=== PATIENT | female | born 1960 | race Caucasian/White ===

== ENCOUNTER 2017-05-01 13:52 | Outpatient (CLI) | payer BC ==
--- NOTE | 2017-05-01 15:41 | MMO ---
BILATERAL DIGITAL SCREENING MAMMOGRAMS: Date: 05/01/17 HISTORY: 57-year-old female presents for digital screening mammogram. COMPARISON: 04/20/16, 04/15/15, 04/08/14, 03/20/13, 03/31/11. FINDINGS: This patient's mammogram was interpreted with the assistance of computer-aided detection. Scattered areas of fibroglandular density are noted bilaterally. There are some stable multiple focal areas of parenchymal density asymmetry noted bilaterally. No direct or indirect evidence of malignan cy. IMPRESSION: BIRADS 2: Benign Finding(s) Continue routine screening. POS: [facility]
== END 2017-05-01 13:53 | disposition home or self-care (01) ==
LOC: SCSMAMMO 13:52
PROVIDERS: ATTEND Specialist
DX: Z12.31 Encounter for screening mammogram for malignant neoplasm of breast (principal)
CPT/HCPCS: 77067; G0202